=== PATIENT | male | born 1950 | race Caucasian/White ===

== ENCOUNTER 2021-08-07 17:45 | Inpatient (IN) | payer BC ==
[~2021-08-07] VITALS: Ht 182.9 cm; Wt 99.8 kg
--- NOTE | ~2021-08-07 | EKG ---
[place] [address] ELECTROCARDIOGRAM REPORT Name: YOUNG TEJADA Room: [address] ADM IN M.R.#: [id number] Admission: 08/07/21 Attend Phys: Cheryl Wylie, Discharge: Date of : 54 Date of Service: 08/11/21 0353 Report #: [id number] THIS REPORT FOR: //name// [facility] Test Date: 2021-08-11 Test Time: 03:53:02 Pat Name: YOUNG TEJADA Department: Room: [address] Gender: M Voice Teacher: CJ : 1950 Requested By: Cheryl Wylie Order Number: [id number] [place] MD: Measurements Intervals [place] Rate: 117 P: [place]: QRS: -91 QRSD: 142 T: 5 QT: 381 QTc: 532 Interpretive Statements Atrial fibrillation Right bundle branch block Inferior infarct, old Compared to ECG 08/07/2021 17:51:44 Myocardial infarct finding now present Sinus rhythm no longer present Left anterior fascicular block no longer present Electronically Signed On 08-11-2021 9:32:47 PIPE FITTER SUPERVISOR MAINTENANCE by Dequan Hassan [email or web address] By: 2 2 Epiphany Epiphany, /ALONDRA
--- NOTE | ~2021-08-07 | EKG ---
[place] [address] ELECTROCARDIOGRAM REPORT Name: YOUNG TEJADA Room: [address] ADM IN M.R.#: [id number] Admission: 08/07/21 Attend Phys: Cheryl Wylie, Discharge: Date of : 54 Date of Service: 08/11/21 1416 Report #: [id number] THIS REPORT FOR: //name// [facility] Test Date: 2021-08-11 Test Time: 14:16:50 Pat Name: YOUNG TEJADA Department: Room: [address] Gender: M Abrasives Sales Representative: CRIS : 1950 Requested By: Cheryl Wylie Order Number: [id number] [place] MD: Measurements Intervals [place] Rate: 85 P: [place]: QRS: -67 QRSD: 145 T: 13 QT: 410 QTc: 488 Interpretive Statements Atrial fibrillation Right bundle branch block Inferior infarct, old Artifact in lead(s) I,III,aVR,aVL,aVF Compared to ECG 08/11/2021 03:53:02 No significant changes Electronically Signed On 08-12-2021 10:36:54 DIAGRAMMER by Dequan Hassan [email or web address] By: 141 15 Epiphany EpiphanyMD /ALONDRA
[2021-08-07 17:54] VITALS: BP 186/95
[2021-08-07 18:13] LABS: MPV 7.3 fl. (7.2-11.1); NUCLEATED RBCS 0 /100WBC; PLATELET COUNT* 197 thou/uL (150-400); RDW-CV 14.5 % (10.5-14.5)
[2021-08-07 18:15] LABS: HEMATOCRIT 38.9 % (42.0-52.0); HEMOGLOBIN 13.6 gm/dL (14.0-18.0); MCH 33.4 pg (26.0-34.0); MCHC 34.9 g/dL (28.0-37.0); MCV 95.7 fL (80.0-100.0); RBC 4.07 mil/uL (4.50-6.00); WBC 2.8 thou/uL (4.0-11.0)
[2021-08-07 18:43] LABS: INFLUENZA A ANTIGEN Negative (Negative); INFLUENZA B ANTIGEN Negative (Negative)
[2021-08-07 18:49] LABS: CALCIUM 8.6 mg/dL (8.5-10.1); CREATININE 1.3 mg/dL (0.6-1.3); POTASSIUM 3.2 mmol/L (3.5-5.1)
[2021-08-07 18:53] LABS: TOTAL BILIRUBIN 1.7 mg/dL (<0.1-1.0); TOTAL PROTEIN 7.4 g/dL (6.4-8.2)
[2021-08-07 19:08] LABS: ABSOLUTE LYMPHOCYTES 0.3 thou/uL (0.8-5.3); ABSOLUTE NEUTROPHILS 2.5 thou/uL (1.6-8.1); PLATELET ESTIMATE ADEQUATE
[2021-08-07 19:09] LABS: LARGE PLATELETS RARE
[2021-08-07] MEDS ORDERED: CHLORTHALIDONE25 MG PO (20:04)
[2021-08-07] MEDS ORDERED: ATENOLOL 25 MG25 M1 PO (20:04)
[2021-08-07] MEDS ORDERED: AMARYL2 M1 PO (20:04)
[2021-08-08 01:18] LABS: URINE BILIRUBIN NEGATIVE (Negative); URINE BLOOD 1+ (Negative); URINE CLARITY CLEAR; URINE COLOR YELLOW; URINE GLUCOSE-RANDOM 3+ (Negative); URINE KETONES 2+ (Negative); URINE LEUKOCYTES NEGATIVE (Negative); URINE NITRITE NEGATIVE (Negative); URINE PROTEIN 3+ (Negative); URINE SPECIFIC GRAVITY 1.025 (1.005-1.030)
[2021-08-08 02:09] LABS: SQUAMOUS 0-3 Few /LPF (0-3)
[2021-08-08 02:10] LABS: BACTERIA None Seen /HPF (None Seen); CRYSTALS None Seen /LPF (None Seen); HYALINE CASTS 0-3 Few /LPF (None Seen); URINE RBC 0-2 Rare /HPF (0-2); URINE WBC 0-5 Rare /HPF (0-5)
[2021-08-08 03:15] LABS: HEMATOCRIT 37.4 % (42.0-52.0); HEMOGLOBIN 12.8 gm/dL (14.0-18.0); MCH 33.4 pg (26.0-34.0); MCHC 34.2 g/dL (28.0-37.0); MCV 97.5 fL (80.0-100.0); MPV 7.1 fl. (7.2-11.1); RBC 3.83 mil/uL (4.50-6.00); WBC 2.8 thou/uL (4.0-11.0)
[2021-08-08 03:35] VITALS: BP 186/89
[2021-08-08 03:35] LABS: CALCIUM 8.8 mg/dL (8.5-10.1); CREATININE 1.1 mg/dL (0.6-1.3); POTASSIUM 3.2 mmol/L (3.5-5.1)
[2021-08-08 03:39] LABS: ALBUMIN 2.6 g/dL (3.4-5.0); MAGNESIUM 2.2 mg/dL (1.8-2.4); TOTAL BILIRUBIN 1.2 mg/dL (<0.1-1.0); TOTAL PROTEIN 7.8 g/dL (6.4-8.2)
[2021-08-08 07:00] VITALS: BP 154/82
[2021-08-08 11:00] VITALS: BP 138/83
--- NOTE | 2021-08-08 13:49 | EKG ---
[place] [address] ELECTROCARDIOGRAM REPORT Name: YOUNG TEJADA Room: [place] [address] ADM IN ..#: [id number] Admission: 08/07/21 Attend Phys: Cheryl Wylie, Discharge: Date of : 54 Date of Service: 08/07/21 1751 Report #: [id number] THIS REPORT FOR: //name// [facility] ED Test Date: 2021-08-07 Test Time: 17:51:44 Pat Name: YOUNG TEJADA Department: Room: [facility] Gender: M Foundry Metallurgist: SANDRA : 1950 Requested By: Loc Arevalo Order Number: [id number] MD: Jalen Quinn Measurements Intervals [place] Rate: 92 P: 4 HI: 176 QRS: -81 QRSD: 152 T: 48 QT: 395 QTc: 489 Interpretive Statements Sinus rhythm RBBB and LAFB Baseline wander in lead(s) V1,V2 No previous ECG available for comparison Electronically Signed On 08-08-2021 13:49:13 NITRILES LAB TECHNICIAN by Jalen Quinn [email or web address] <ELECTRONICALLY SIGNED> By: Jalen Quinn MD, FACC 08/08/21 1349 1751 1751 Jalen Quinn MD, [facility] /EPI
--- NOTE | 2021-08-08 15:11 | 2DMMODE ---
[place] [address] 2 D/M-MODE ECHOCARDIOGRAM Name: LINDSEYYOUNG OWEN Room: [place] [address] ADM IN .R.#: [id number] Admission: 08/07/21 Attend Phys: Cheryl Wylie, Discharge: Date of : 54 Date of Service: 08/08/21 1511 Report #: [id number] THIS REPORT FOR: cc: Elina Leal Stefany RNP Holkins, John M. MD [facility] ~ APPROVED REPORT Study performed: 08/08/2021 13:48:14 EXAM: Comprehensive 2D, Doppler, and color-flow Echocardiogram Patient Location: In-Patient Room #: er Status: routine BSA: 2.13 HR: 76 bpm BP: 154/82 mmHg Rhythm: NSR Other Information Study Quality: Good Indications Cardiomegaly 2D Dimensions IVSd: 10.88 (7-11mm) LVOT Diam: 20.14 (18-24mm) LVDd: 51.93 mm PWd: 11.63 (7-11mm) Ascending Ao: 30.79 (22-36mm) LVDs: 37.73 (25-40mm) Aortic Root: 32.68 mm Volumes Left Atrial Volume (Systole) LA ESV Index: 37.20 mL/m2 Aortic Valve AoV Peak Alexander.: 1.61 m/s AO Peak Gr.: 10.41 mmHg LVOT Max P.51 mmHg AO Mean Gr.: 5.64 mmHg LVOT Mean P.91 mmHg LVOT Max V: 1.17 m/s AO V2 VTI: 27.38 cm LVOT Mean V: 0.79 m/s MARIBELL (VTI): 2.57 cm2 LVOT V1 VTI: 22.12 [place] [address] 2 D/M-MODE ECHOCARDIOGRAM Name: YOUNG TEJADA Room: [address] IN ..#: [id number] Admission: 08/07/21 Attend Phys: Cheryl Wylie, Discharge: Date of : 54 Date of Service: 08/08/21 1511 Report #: [id number] Mitral Valve E/A Ratio: 1.56 MV Decel. Time: 149.18 ms MV E Max Alexander.: 0.94 m/s MV PHT: 43.26 ms MVA (PHT): 5.09 cm2 TDI E/Lateral E': 8.55 E/Medial E': 8.55 Medial E' Alexander.: 0.11 m/s Lateral E' Alexander.: 0.11 m/s Pulmonary Valve PV Peak Alexander.: 1.03 m/s PV Peak Gr.: 4.27 mmHg Tricuspid Valve RAP Estimate: 5.00 mmHg TR Peak Gr.: 24.22 mmHg RVSP: 29.00 mmHg PA Pressure: 29.00 mmHg Left Ventricle The left ventricle is normal size. There is normal LV segmental wall motion. There is normal left ventricular wall thickness. Left ventricular systolic function is normal. The left ventricular ejection fraction is within the normal range. LVEF is 55-60%. The left ventricular diastolic function is normal. Right Ventricle The right ventricle is normal size. The right ventricular systolic function is normal. Atria The left atrium size is normal. The right atrium size is normal. Aortic Valve Mild aortic valve sclerosis. No aortic regurgitation is present. There is no aortic valvular stenosis. Mitral Valve The mitral valve is normal in structure. There is no mitral valve regurgitation noted. No evidence of mitral valve stenosis. Tricuspid Valve The tricuspid valve is normal in structure. Trace tricuspid regurgitation. [place] [address] 2 D/M-MODE ECHOCARDIOGRAM Name: YOUNG TEJADA Room: [address] IN [facility]#: [id number] Admission: 08/07/21 Attend Phys: Cheryl Wylie, Discharge: Date of : 54 Date of Service: 08/08/21 1511 Report #: [id number] Pulmonic Valve The pulmonary valve is normal in structure. There is no pulmonic valvular regurgitation. Great Vessels The aortic root is normal in size. IVC is normal in size and collapses >50% with inspiration. Pericardium There is no pericardial effusion. <Conclusion> The left ventricle is normal size. There is normal left ventricular wall thickness. Left ventricular systolic function is normal. The left ventricular ejection fraction is within the normal range. LVEF is 55-60%. The left ventricular diastolic function is normal. The right ventricle is normal size. The left atrium size is normal. Mild aortic valve sclerosis. No aortic regurgitation is present. There is no aortic valvular stenosis. The mitral valve is normal in structure. The tricuspid valve is normal in structure. IVC is normal in size and collapses >50% with inspiration. There is no pericardial effusion. There is normal LV segmental wall motion. <ELECTRONICALLY SIGNED> By: Jalen Quinn MD, FACC 08/08/211510 10 10 Jalen Quinn MD, FACC /INF
[2021-08-08 15:29] VITALS: BP 121/76
[2021-08-08 16:21] VITALS: BP 121/76
[2021-08-08 21:04] VITALS: BP 159/80
[2021-08-09 02:39] VITALS: BP 172/91
[2021-08-09 04:12] LABS: HEMATOCRIT 35.8 % (42.0-52.0); HEMOGLOBIN 12.5 gm/dL (14.0-18.0); MCH 33.2 pg (26.0-34.0); MCHC 34.9 g/dL (28.0-37.0); MCV 95.1 fL (80.0-100.0); MPV 7.7 fl. (7.2-11.1); RBC 3.76 mil/uL (4.50-6.00); RDW-CV 14.9 % (10.5-14.5)
[2021-08-09 04:41] LABS: ALBUMIN 2.2 g/dL (3.4-5.0); CALCIUM 8.7 mg/dL (8.5-10.1); CREATININE 0.9 mg/dL (0.6-1.3); MAGNESIUM 2.1 mg/dL (1.8-2.4); POTASSIUM 3.2 mmol/L (3.5-5.1); TOTAL BILIRUBIN 0.9 mg/dL (<0.1-1.0); TOTAL PROTEIN 7.2 g/dL (6.4-8.2)
[2021-08-09 05:57] VITALS: BP 157/85
[2021-08-09 07:08] LABS: GLYCOHEMOGLOBIN (HGB A1C) 8.8 % (4.8-5.6)
[2021-08-09 15:00] VITALS: BP 167/75
[2021-08-09 15:02] VITALS: BP 167/75
[2021-08-09 15:41] LABS: CALCIUM 8.6 mg/dL (8.5-10.1); POTASSIUM 3.7 mmol/L (3.5-5.1)
[2021-08-09 16:00] VITALS: BP 130/86
[2021-08-09 20:00] VITALS: BP 111/63
[2021-08-10 01:30] VITALS: BP 128/83
[2021-08-10 05:36] LABS: ALBUMIN 1.9 g/dL (3.4-5.0); CALCIUM 8.6 mg/dL (8.5-10.1); CREATININE 0.9 mg/dL (0.6-1.3); POTASSIUM 3.8 mmol/L (3.5-5.1); TOTAL BILIRUBIN 0.8 mg/dL (<0.1-1.0); TOTAL PROTEIN 6.9 g/dL (6.4-8.2)
[2021-08-10 05:49] VITALS: BP 131/83
[2021-08-10 08:00] VITALS: BP 143/83
[2021-08-10 16:00] VITALS: BP 133/78
[2021-08-10 20:29] LABS: ABSOLUTE LYMPHOCYTES 0.2 thou/uL (0.8-5.3); ABSOLUTE NEUTROPHILS 3.7 thou/uL (1.6-8.1); BASOPHILS 0.8 %; HEMATOCRIT 41.8 % (42.0-52.0); HEMOGLOBIN 14.4 gm/dL (14.0-18.0); LYMPHOCYTES 5.4 %; MCH 33.2 pg (26.0-34.0); MCHC 34.4 g/dL (28.0-37.0); MCV 96.7 fL (80.0-100.0); MONOCYTES 1.1 %; MPV 7.8 fl. (7.2-11.1); NUCLEATED RBCS 0 /100WBC; PLATELET COUNT* 229 thou/uL (150-400); POLYS 92.7 %; RBC 4.32 mil/uL (4.50-6.00); RDW-CV 14.9 % (10.5-14.5); WBC 3.9 thou/uL (4.0-11.0)
[2021-08-10 20:40] VITALS: BP 137/81
[2021-08-10 20:44] LABS: ALBUMIN 1.9 g/dL (3.4-5.0); CALCIUM 8.8 mg/dL (8.5-10.1); CREATININE 1.1 mg/dL (0.6-1.3); POTASSIUM 3.8 mmol/L (3.5-5.1); TOTAL BILIRUBIN 0.6 mg/dL (<0.1-1.0); TOTAL PROTEIN 7.3 g/dL (6.4-8.2)
[2021-08-10 23:30] VITALS: BP 142/78
[2021-08-11 04:22] VITALS: BP 168/89
[2021-08-11 05:56] LABS: HEMATOCRIT 44.7 % (42.0-52.0); HEMOGLOBIN 15.3 gm/dL (14.0-18.0); MCH 33.3 pg (26.0-34.0); MCHC 34.3 g/dL (28.0-37.0); MPV 8.9 fl. (7.2-11.1); NUCLEATED RBCS 0 /100WBC; PLATELET COUNT* 239 thou/uL (150-400); RBC 4.61 mil/uL (4.50-6.00); RDW-CV 15.3 % (10.5-14.5); WBC 4.1 thou/uL (4.0-11.0)
[2021-08-11 06:03] LABS: ALBUMIN 2.1 g/dL (3.4-5.0); CALCIUM 8.9 mg/dL (8.5-10.1); MAGNESIUM 1.9 mg/dL (1.8-2.4); TOTAL PROTEIN 7.9 g/dL (6.4-8.2)
[2021-08-11 06:15] LABS: POTASSIUM 4.8 mmol/L (3.5-5.1)
[2021-08-11 07:13] LABS: ABSOLUTE LYMPHOCYTES 0.3 thou/uL (0.8-5.3); ABSOLUTE NEUTROPHILS 3.8 thou/uL (1.6-8.1)
[2021-08-11 07:14] LABS: PLATELET ESTIMATE ADEQUATE
[2021-08-11 08:00] VITALS: BP 150/105
--- NOTE | 2021-08-11 09:32 | EKG ---
[place] [address] ELECTROCARDIOGRAM REPORT Name: YOUNG TEJADA Room: [address] ADM IN M.R.#: [id number] Admission: 08/07/21 Attend Phys: Cheryl Wylie, Discharge: Date of : 54 Date of Service: 08/11/21 0353 Report #: [id number] THIS REPORT FOR: //name// [facility] Test Date: 2021-08-11 Test Time: 03:53:02 Pat Name: YOUNG TEJADA Department: Room: [facility] Gender: M Box Truck Washer: CJ : 1950 Requested By: Erma Boyle Order Number: [id number] [place] MD: Dequan Hassan Measurements Intervals [place] Rate: 117 P: [place]: QRS: -91 QRSD: 142 T: 5 QT: 381 QTc: 532 Interpretive Statements Atrial fibrillation Right bundle branch block Inferior infarct, old Compared to ECG 08/07/2021 17:51:44 Myocardial infarct finding now present Sinus rhythm no longer present Left anterior fascicular block no longer present Electronically Signed On 08-11-2021 9:32:47 FIELD ARTILLERY CREWMEMBER by Dequan Hassan [email or web address] <ELECTRONICALLY SIGNED> By: Aparna Hassan MD, FACC 08/11/21 0932 2 2 Aparna Hassan MD, FAC /EPI
[2021-08-11 12:00] VITALS: BP 140/76
[2021-08-11 12:21] LABS: BE 1.7 mmol/L (-2 to +3); PCO2 36.2 mmHg (35.0-45.0); pH 7.461 (7.340-7.450)
[2021-08-11 12:26] LABS: PO2 56.6 mmHg (75.0-100.0)
[2021-08-11 16:00] VITALS: BP 137/80
[2021-08-11 20:00] VITALS: BP 131/85
[2021-08-12] VITALS: BP 129/82
[2021-08-12 04:00] VITALS: BP 123/74
[2021-08-12 08:00] VITALS: BP 144/51
--- NOTE | 2021-08-12 08:15 | CON ---
[address] [address] CONSULTATION Name: YOUNG TEJADA Room: [address] IN M.R.#: [id number] Admission: 08/07/21 Attend Phys: Cheryl Wylie MD Discharge: Date of : 54 Report #: [id number] THIS REPORT FOR: cc: Elina Leal Stefany RNP Biggs, F. Douglas MD [facility] ~ DATE OF CONSULTATION: 08/11/2021 CARDIOLOGY FOLLOWUP VISIT HISTORY OF PRESENT ILLNESS: The patient feels better today, he says. He is less short of breath. He remains in atrial fibrillation, but now his heart rate is controlled. He is on an amiodarone drip. He is on Cardizem and a beta bryan. He got a loading dose of digoxin yesterday. PHYSICAL EXAMINATION: GENERAL: He presents as a well-developed, well-nourished white male in no acute distress. VITAL SIGNS: Pulse was 79 and irregular, blood pressure was 168/89, respirations were 22, temperature was 36.6. NECK: There was no jugular venous distention or hepatojugular reflux. LUNGS: Revealed decreased breath sounds bilaterally. HEART: Revealed somewhat distant heart tones, but there were no murmurs, rubs, thrills, heaves or gallops. Rhythm was irregularly irregular. ABDOMEN: Soft, flat, nontender. There were no palpable masses. There is no organomegaly. EXTREMITIES: Reveal no cyanosis, clubbing or edema. DIAGNOSTIC DATA: His monitor does reveal atrial fibrillation with a controlled ventricular response. IMPRESSION: 1. Atrial fibrillation, now with a controlled ventricular response. 2. COVID-19 infection. 3. Essential hypertension. 4. Diabetes mellitus. RECOMMENDATIONS: I began p.o. amiodarone to get him off the IV amiodarone. Please see my orders. Overall, he seems to be doing better. <ELECTRONICALLY SIGNED> By: Aparna Hassan MD, FACC 08/12/21 0815 0830F. Dequan Hassan MD, FACC /nt
[2021-08-12 09:21] LABS: HEMATOCRIT 41.2 % (42.0-52.0); MCH 32.9 pg (26.0-34.0); MCHC 33.9 g/dL (28.0-37.0); MCV 97.1 fL (80.0-100.0); MPV 8.4 fl. (7.2-11.1); RBC 4.24 mil/uL (4.50-6.00); RDW-CV 15.8 % (10.5-14.5); WBC 3.2 thou/uL (4.0-11.0)
[2021-08-12 09:42] LABS: ALBUMIN 2.3 g/dL (3.4-5.0); ALKALINE PHOSPHATASE 49 U/L (46-116); ANION GAP 8 mmol/L (7-16); BUN 48 mg/dL (7-18); CALCIUM 8.9 mg/dL (8.5-10.1); CHLORIDE 97 mmol/L (98-107); CHOLESTEROL 129 mg/dL (<200); CO2 29 mmol/L (21-32); GLUCOSE 218 mg/dL (70-99); HDL CHOLESTEROL 17 mg/dL (>40); LDL CHOLESTEROL 88 mg/dL (<100); POTASSIUM 3.6 mmol/L (3.5-5.1); SGOT 18 U/L (15-37); SGPT 17 U/L (30-65); SODIUM 134 mmol/L (136-145); TC:HDL 7.6 Ratio (Not establshd); TOTAL PROTEIN 7.2 g/dL (6.4-8.2); TRIGLYCERIDE 123 mg/dL (<150); VLDL 25 mg/dL (<40)
[2021-08-12 09:43] LABS: SERUM ASSESSMENT Clear
[2021-08-12 09:44] LABS: CALCIUM 8.9 mg/dL (8.5-10.1); MAGNESIUM 2.1 mg/dL (1.8-2.4); POTASSIUM 3.7 mmol/L (3.5-5.1)
--- NOTE | 2021-08-12 10:37 | EKG ---
[place] [address] ELECTROCARDIOGRAM REPORT Name: MALLORYYOUNG Room: [address] ADM IN M.R.#: [id number] Admission: 08/07/21 Attend Phys: Cheryl Wylie, Discharge: Date of : 54 Date of Service: 08/11/21 1416 Report #: [id number] THIS REPORT FOR: //name// [facility] Test Date: 2021-08-11 Test Time: 14:16:50 Pat Name: YOUNG TEJADA Department: Room: [address] Gender: M Crop Nutrition Scientist: CRIS : 1950 Requested By: Aparna Hassan Order Number: [id number] [place] MD: Dequan Hassan Measurements Intervals [place] Rate: 85 P: [place]: QRS: -67 QRSD: 145 T: 13 QT: 410 QTc: 488 Interpretive Statements Atrial fibrillation Right bundle branch block Inferior infarct, old Artifact in lead(s) I,III,aVR,aVL,aVF Compared to ECG 08/11/2021 03:53:02 No significant changes Electronically Signed On 08-12-2021 10:36:54 CONTEMPORARY OR MODERN DANCER by Dequan Hassan [email or web address] <ELECTRONICALLY SIGNED> By: Aparna Hassan MD, FACC 08/12/21 1036 15 141 Aparna Hassan MD, FACC /EPI
[2021-08-12 12:00] VITALS: BP 136/72
[2021-08-12 16:00] VITALS: BP 158/74
[2021-08-12 20:00] VITALS: BP 114/74
[2021-08-13 00:05] VITALS: BP 139/85
[2021-08-13 04:00] VITALS: BP 136/82
[2021-08-13 08:00] VITALS: BP 133/76
[2021-08-13 08:59] LABS: ABSOLUTE NEUTROPHILS 2.6 thou/uL (1.6-8.1); WBC 2.8 thou/uL (4.0-11.0)
[2021-08-13 09:01] LABS: ABSOLUTE LYMPHOCYTES 0.2 thou/uL (0.8-5.3); BASOPHILS 0.7 %; HEMATOCRIT 40.5 % (42.0-52.0); HEMOGLOBIN 13.6 gm/dL (14.0-18.0); MCH 32.5 pg (26.0-34.0); MCHC 33.6 g/dL (28.0-37.0); MCV 96.8 fL (80.0-100.0); MONOCYTES 0.9 %; MPV 8.8 fl. (7.2-11.1); NUCLEATED RBCS 0 /100WBC; PLATELET COUNT* 270 thou/uL (150-400); POLYS 92.4 %; RBC 4.18 mil/uL (4.50-6.00); RDW-CV 15.7 % (10.5-14.5)
[2021-08-13 09:03] LABS: BE 3.8 mmol/L (-2 to +3); PCO2 36.6 mmHg (35.0-45.0); pH 7.486 (7.340-7.450)
[2021-08-13 09:10] LABS: PO2 51.7 mmHg (75.0-100.0)
[2021-08-13 09:25] LABS: ALBUMIN 2.2 g/dL (3.4-5.0); CALCIUM 8.3 mg/dL (8.5-10.1); CREATININE 1.3 mg/dL (0.6-1.3); MAGNESIUM 2.1 mg/dL (1.8-2.4); POTASSIUM 3.8 mmol/L (3.5-5.1); TOTAL PROTEIN 6.9 g/dL (6.4-8.2)
[2021-08-13 12:00] VITALS: BP 140/79
[2021-08-13 12:43] LABS: BE 2.2 mmol/L (-2 to +3); pH 7.504 (7.340-7.450)
[2021-08-13 12:45] LABS: PO2 47.3 mmHg (75.0-100.0)
[2021-08-13 16:00] VITALS: BP 141/78
[2021-08-13 19:55] VITALS: BP 134/74
[2021-08-14] VITALS (15 sets, daily range): BP systolic 114–175; BP diastolic 58–85
[2021-08-14 07:09] LABS: ABSOLUTE LYMPHOCYTES 0.1 thou/uL (0.8-5.3); ABSOLUTE NEUTROPHILS 3.3 thou/uL (1.6-8.1); BASOPHILS 0.2 %; HEMATOCRIT 38.8 % (42.0-52.0); HEMOGLOBIN 13.1 gm/dL (14.0-18.0); LYMPHOCYTES 3.9 %; MCH 32.8 pg (26.0-34.0); MCHC 33.8 g/dL (28.0-37.0); MONOCYTES 0.4 %; MPV 8.4 fl. (7.2-11.1); NUCLEATED RBCS 0 /100WBC; PLATELET COUNT* 238 thou/uL (150-400); POLYS 95.5 %; RDW-CV 15.4 % (10.5-14.5); WBC 3.4 thou/uL (4.0-11.0)
[2021-08-14 07:21] LABS: ALBUMIN 2.1 g/dL (3.4-5.0); CALCIUM 8.2 mg/dL (8.5-10.1); CREATININE 1.1 mg/dL (0.6-1.3); POTASSIUM 3.6 mmol/L (3.5-5.1); TOTAL BILIRUBIN 1.3 mg/dL (<0.1-1.0); TOTAL PROTEIN 6.5 g/dL (6.4-8.2)
--- NOTE | 2021-08-14 07:59 | CON ---
[address] [address] CONSULTATION Name: YOUNG TEJADA Room: [address] ADM IN M.R.#: [id number] Admission: 08/07/21 Attend Phys: Cheryl Wylie MD Discharge: Date of : 54 Report #: [id number] THIS REPORT FOR: cc: Elina Leal Stefany RNP Biggs, F. Douglas MD [facility] ~ DATE OF CONSULTATION: 08/12/2021 CARDIOLOGY HOSPITAL FOLLOWUP VISIT HISTORY OF PRESENT ILLNESS: The patient feels well today. He says he feels better than he felt yesterday. He is not complaining of any shortness of breath or chest pain. He remains in atrial fibrillation, his heart rate is controlled with multiple meds. On the monitor, he periodically has a sinus beat. Today, he looks well, feels well, and seems to be doing well. There is no jugular venous distention. PHYSICAL EXAMINATION: VITAL SIGNS: His temperature is 36.7, pulse was 81 and irregular, respirations were 22 and regular. His blood pressure was 121/74. His O2 sat was 89% on oxygen. LUNGS: Demonstrated decreased breath sounds bilaterally. HEART: Revealed normal first and second heart sound. The rhythm was irregularly irregular. No murmurs, rubs, thrills, heaves or gallops. PMI is nondisplaced. ABDOMEN: Soft, flat, nontender, no palpable masses, no organomegaly. EXTREMITIES: Reveal no cyanosis, clubbing or edema. NEUROLOGIC: The patient mentated normally, talked normally, moved all extremities normally. IMPRESSION: 1. COVID-19 pneumonia. 2. Atrial fibrillation with a controlled ventricular response, now. 3. Essential hypertension. 4. Diabetes mellitus. RECOMMENDATIONS: I would continue his current regimen and continue loading with amiodarone. <ELECTRONICALLY SIGNED> By: Aparna Hassan MD, FACC 08/14/21 0759 0808 0843F. Dequan Hassan MD, FACC /nt
[2021-08-14 10:24] LABS: BE -0.5 mmol/L (-2 to +3); PCO2 28.6 mmHg (35.0-45.0); PO2 73.5 mmHg (75.0-100.0); pH 7.494 (7.340-7.450)
--- NOTE | 2021-08-14 12:56 | EKG ---
[place] [address] ELECTROCARDIOGRAM REPORT Name: YOUNG TEJADA Room: [address] ADM IN M.R.#: [id number] Admission: 08/07/21 Attend Phys: Cheryl Wylie, Discharge: Date of : 54 Date of Service: 08/14/21 1010 Report #: [id number] THIS REPORT FOR: //name// [facility] Test Date: 2021-08-14 Test Time: 10:10:28 Pat Name: YOUNG TEJADA Department: Room: [facility] Gender: M Scientific Programmer Analyst: : 1950 Requested By: Aparan Hassan Order Number: [id number] [place] MD: Cayden Bains Measurements Intervals [place] Rate: 91 P: [place]: QRS: -73 QRSD: 146 T: 55 QT: 471 QTc: 580 Interpretive Statements Atrial flutter RBBB and LAFB Compared to ECG 08/11/2021 14:16:50 Left anterior fascicular block now present Myocardial infarct finding no longer present Electronically Signed On 08-14-2021 12:56:20 TEXTILE MACHINE OPERATOR by Cayden Bains [email or web address] <ELECTRONICALLY SIGNED> By: Cayden Bains MD, FACC 08/14/21 1256 1010 1010 Cayden Bains MD, FAC /EPI
[2021-08-15 05:35] LABS: HEMATOCRIT 41.6 % (42.0-52.0); HEMOGLOBIN 14.1 gm/dL (14.0-18.0); MCHC 33.8 g/dL (28.0-37.0); MCV 97.6 fL (80.0-100.0); MPV 8.1 fl. (7.2-11.1); RBC 4.26 mil/uL (4.50-6.00); RDW-CV 15.7 % (10.5-14.5); WBC 4.7 thou/uL (4.0-11.0)
[2021-08-15 06:03] LABS: CALCIUM 8.3 mg/dL (8.5-10.1); CREATININE 1.2 mg/dL (0.6-1.3); POTASSIUM 3.9 mmol/L (3.5-5.1)
[2021-08-15 19:01] VITALS: BP 157/74
[2021-08-15 20:00] VITALS: BP 158/77
[2021-08-15 21:01] VITALS: BP 148/68
[2021-08-15 22:01] VITALS: BP 138/78
[2021-08-15 23:00] VITALS: BP 149/83
[2021-08-16] VITALS (24 sets, daily range): BP systolic 126–158; BP diastolic 53–81
[2021-08-16 04:48] LABS: BE -0.3 mmol/L (-2 to +3); PCO2 32.6 mmHg (35.0-45.0); PO2 60.4 mmHg (75.0-100.0)
[2021-08-16 05:54] LABS: HEMATOCRIT 39.6 % (42.0-52.0); HEMOGLOBIN 13.5 gm/dL (14.0-18.0); MCH 32.8 pg (26.0-34.0); MCHC 34.1 g/dL (28.0-37.0); MCV 96.2 fL (80.0-100.0); MPV 8.6 fl. (7.2-11.1); NUCLEATED RBCS 0 /100WBC; PLATELET COUNT* 166 thou/uL (150-400); RBC 4.12 mil/uL (4.50-6.00); RDW-CV 15.4 % (10.5-14.5); WBC 5.4 thou/uL (4.0-11.0)
[2021-08-16 06:37] LABS: ALBUMIN 2.2 g/dL (3.4-5.0); CALCIUM 8.2 mg/dL (8.5-10.1); CREATININE 1.1 mg/dL (0.6-1.3); TOTAL BILIRUBIN 1.1 mg/dL (<0.1-1.0); TOTAL PROTEIN 6.4 g/dL (6.4-8.2)
[2021-08-16 08:36] LABS: ABSOLUTE LYMPHOCYTES 0.2 thou/uL (0.8-5.3); ABSOLUTE MONOCYTES 0.1 thou/uL (0.0-1.2); ABSOLUTE NEUTROPHILS 5.2 thou/uL (1.6-8.1)
[2021-08-16 08:38] LABS: PLATELET ESTIMATE ADEQUATE
--- NOTE | 2021-08-16 12:27 | EKG ---
[place] [address] ELECTROCARDIOGRAM REPORT Name: YOUNG TEJADA Room: [address] ADM IN M.R.#: [id number] Admission: 08/07/21 Attend Phys: Cheryl Wylie, Discharge: Date of : 54 Date of Service: 08/16/21 0510 Report #: [id number] THIS REPORT FOR: //name// [facility] Test Date: 2021-08-16 Test Time: 05:10:09 Pat Name: YOUNG TEJADA Department: Room: [address] Gender: M Consultant Teacher: : 1950 Requested By: Erma Boyle Order Number: [id number] Adonay MD: Cayden Bains Measurements Intervals [place] Rate: 52 P: -16 [place]: 206 QRS: -66 QRSD: 151 T: 64 QT: 554 QTc: 516 Interpretive Statements Sinus rhythm RBBB and LAFB Compared to ECG 08/14/2021 10:10:28 Atrial flutter no longer present Electronically Signed On 08-16-2021 12:27:11 CAE ENGINEER by Cayden Banis [email or web address] <ELECTRONICALLY SIGNED> By: Cayden Bains MD, FACC 08/16/21 1227 0510 0510 Cayden Bains MD, FAC /EPI
[2021-08-16 14:35] LABS: BE -3.7 mmol/L (-2 to +3); pH 7.419 (7.340-7.450)
[2021-08-16 14:38] LABS: PO2 51.1 mmHg (75.0-100.0)
[2021-08-16 17:33] LABS: BE -0.5 mmol/L (-2 to +3); PCO2 30.3 mmHg (35.0-45.0); PO2 64.4 mmHg (75.0-100.0); pH 7.478 (7.340-7.450)
[2021-08-17] VITALS (23 sets, daily range): BP systolic 121–170; BP diastolic 52–110
[2021-08-17 05:11] LABS: HEMOGLOBIN 13.6 gm/dL (14.0-18.0); MCH 32.5 pg (26.0-34.0); MCV 95.7 fL (80.0-100.0); MPV 8.9 fl. (7.2-11.1); RBC 4.18 mil/uL (4.50-6.00); RDW-CV 15.4 % (10.5-14.5); WBC 7.6 thou/uL (4.0-11.0)
[2021-08-17 05:25] LABS: CALCIUM 8.1 mg/dL (8.5-10.1); CREATININE 1.1 mg/dL (0.6-1.3); POTASSIUM 4.4 mmol/L (3.5-5.1)
[2021-08-18] VITALS (11 sets, daily range): BP systolic 121–158; BP diastolic 61–82
[2021-08-18 13:31] LABS: HEMATOCRIT 41.7 % (42.0-52.0); MCH 32.6 pg (26.0-34.0); MCHC 33.6 g/dL (28.0-37.0); MPV 9.2 fl. (7.2-11.1); RBC 4.29 mil/uL (4.50-6.00); RDW-CV 15.8 % (10.5-14.5); WBC 8.1 thou/uL (4.0-11.0)
[2021-08-18 13:41] LABS: CALCIUM 8.2 mg/dL (8.5-10.1); CREATININE 1.3 mg/dL (0.6-1.3); POTASSIUM 4.2 mmol/L (3.5-5.1)
[2021-08-19 00:50] VITALS: BP 144/74
[2021-08-19 04:41] VITALS: BP 132/64
[2021-08-19 12:48] VITALS: BP 148/67
[2021-08-19 16:54] VITALS: BP 149/65
[2021-08-19 20:00] VITALS: BP 129/55
[2021-08-19 20:01] LABS: HEMATOCRIT 44.3 % (42.0-52.0); MCH 32.9 pg (26.0-34.0); MCHC 33.9 g/dL (28.0-37.0); MPV 9.5 fl. (7.2-11.1); NUCLEATED RBCS 0 /100WBC; PLATELET COUNT* 116 thou/uL (150-400); RBC 4.57 mil/uL (4.50-6.00); RDW-CV 15.4 % (10.5-14.5); WBC 6.7 thou/uL (4.0-11.0)
[2021-08-19 20:08] LABS: CALCIUM 8.2 mg/dL (8.5-10.1); CREATININE 1.1 mg/dL (0.6-1.3); POTASSIUM 4.4 mmol/L (3.5-5.1)
[2021-08-19 21:00] LABS: ABSOLUTE LYMPHOCYTES 0.2 thou/uL (0.8-5.3); ABSOLUTE MONOCYTES 0.1 thou/uL (0.0-1.2); ABSOLUTE NEUTROPHILS 6.4 thou/uL (1.6-8.1); PLATELET ESTIMATE DECREASED
[2021-08-19 21:01] LABS: TOXIC GRANULATION Occasional
--- NOTE | 2021-08-19 21:54 | CON ---
[address] [address] CONSULTATION Name: YOUNG TEJADA Room: [address] IN M.R.#: [id number] Admission: 08/07/21 Attend Phys: Cheryl Wylie MD Discharge: Date of : 54 Report #: [id number] THIS REPORT FOR: cc: Elina Leal Stefany RNP Pervez, Adeel MD ~ DATE OF CONSULTATION: 08/10/2021 REQUESTING PHYSICIAN: Dr. Nascimento. INDICATION FOR CONSULTATION: Acute hypoxemic respiratory failure secondary to COVID-19. HISTORY OF PRESENT ILLNESS: A 70-year-old gentleman, past medical history includes a history of diabetes and hypertension. He is a remote smoker. He does not carry a previous diagnosis of COPD. At that time he is admitted here with acute hypoxemic respiratory failure secondary to COVID-19, there has been progressively worsening hypoxemia, initially he was maintaining O2 saturation on 2 liters nasal cannula in the low 90s. At the time of my evaluation with 15 liters of green high-flow nasal cannula in place, the patient was only oxygenating 86%. He is short of breath. He is coughing. There is not much sputum. There is no chest pain, mild swelling of lower extremities, no calf pain. No upper respiratory complaints. He has had difficult to control paroxysmal atrial fibrillation with RVR. REVIEW OF SYSTEMS: Review of systems for 10 points is negative except as mentioned above. PAST MEDICAL HISTORY: Hypertension and diabetes. CURRENT MEDICATIONS: List in [facility] reviewed. HOME MEDICATIONS: List in [facility] reviewed. ALLERGIES: REPORTEDLY ALLERGIC TO PENICILLIN; however, tolerates cephalosporins without any problems. FAMILY HISTORY: No pertinent family history. PHYSICAL EXAMINATION: GENERAL: He is alert, awake and oriented. Vitals in [facility] reviewed. NECK: Does not show raised JVP. CHEST: Breath sounds are bilaterally equal. No added sounds. HEART: Irregular. No murmur. ABDOMEN: [place] [address] CONSULTATION Name: YOUNG TEJADA Room: [address] IN .R.#: [id number] Admission: 08/07/21 Attend Phys: Cheryl Wylie MD Discharge: Date of : 54 Report #: [id number] EXTREMITIES: Lower extremities, trace edema, no calf tenderness. The patient's imaging as well as lab work in [facility] reviewed. I had lab work repeated this evening in addition to chest x-ray and I reviewed these. There is worsening infiltrates bilaterally. ASSESSMENT AND PLAN: 1. Acute hypoxemic respiratory failure secondary to COVID-19. The patient is becoming more hypoxemic. I requested the patient to be switched over to heated high-flow nasal cannula, if O2 saturation is not maintained on a green high-flow nasal cannula. If he fails to improve, then I recommend having a low threshold of adding a BiPAP while asleep. 2. COVID-19. Recommend increasing dexamethasone to 10 mg b.i.d., extend duration of the remdesivir to 10 days. Follow LFTs. I would expect further rise in his glucoses as a result. Further discussion regarding this as below. Recommend Actemra as well; however, it is not available. 3. Pulmonary infiltrates, these have worsened; therefore, I switched his ceftriaxone over to cefepime and remains on doxycycline, adding linezolid later should he fail to improve, could be a consideration. 4. Fluid overload/hypoalbuminemia. His albumin is only 1.9. Therefore, despite elevated BUN, we should be able to diurese and give him albumin; however, at 60 of Lasix with 25 grams of albumin for tomorrow morning with potassium replacement. May consider more Lasix later. 5. Atrial fibrillation with rapid ventricular response, on amiodarone, managed by Cardiology. 6. Smoker/possible bronchospasm. He is on low dose Xopenex q.4 hours. We will switch this over to Brovana and p.r.n. Xopenex. Xopenex could be switched to schedule later if needed. 7. Diabetes/hyperglycemia. He has had fairly high blood glucoses above 400. I would advance another small dose of insulin, Lantus is only 7 units, moderate dose insulin sliding scale. I am increasing dexamethasone as above. I would expect that his glucoses will rise and he will need more insulin. Recommend increasing insulin accordingly. For now, increased the insulin sliding scale to high dose. He will likely also need significant increase in Lantus dose. 8. Deep venous thrombosis prophylaxis, already anticoagulated. 9. Gastrointestinal prophylaxis, Protonix. 10. Clostridium difficile prophylaxis, Lactinex. Thanks for this consultation. <ELECTRONICALLY SIGNED> By: Jose Mazariegos MD 08/19/21 2154 2246 [id number] Mazariegos MD /nt
[2021-08-20] VITALS (8 sets, daily range): BP systolic 109–151; BP diastolic 58–75
[2021-08-20 04:46] LABS: HEMATOCRIT 44.7 % (42.0-52.0); HEMOGLOBIN 15.5 gm/dL (14.0-18.0); MCH 32.9 pg (26.0-34.0); MCHC 34.7 g/dL (28.0-37.0); MCV 94.9 fL (80.0-100.0); MPV 8.3 fl. (7.2-11.1); RBC 4.71 mil/uL (4.50-6.00); RDW-CV 15.2 % (10.5-14.5); WBC 7.1 thou/uL (4.0-11.0)
[2021-08-20 05:09] LABS: CALCIUM 7.9 mg/dL (8.5-10.1); CREATININE 0.9 mg/dL (0.6-1.3); MAGNESIUM 2.1 mg/dL (1.8-2.4); TOTAL BILIRUBIN 1.2 mg/dL (<0.1-1.0)
[2021-08-21] VITALS (7 sets, daily range): BP systolic 108–149; BP diastolic 57–75
[2021-08-21 05:43] LABS: ABSOLUTE LYMPHOCYTES 0.1 thou/uL (0.8-5.3); ABSOLUTE NEUTROPHILS 6.3 thou/uL (1.6-8.1); BASOPHILS 0.3 %; EOSINOPHILS 0.1 %; HEMATOCRIT 38.8 % (42.0-52.0); LYMPHOCYTES 1.2 %; MCH 31.8 pg (26.0-34.0); MCHC 33.5 g/dL (28.0-37.0); MCV 94.8 fL (80.0-100.0); MONOCYTES 0.2 %; MPV 9.7 fl. (7.2-11.1); NUCLEATED RBCS 0 /100WBC; PLATELET COUNT* 107 thou/uL (150-400); POLYS 98.2 %; RBC 4.09 mil/uL (4.50-6.00); RDW-CV 15.2 % (10.5-14.5); WBC 6.4 thou/uL (4.0-11.0)
[2021-08-21 06:32] LABS: ALBUMIN 2.3 g/dL (3.4-5.0); CALCIUM 8.1 mg/dL (8.5-10.1); CREATININE 1.2 mg/dL (0.6-1.3); MAGNESIUM 2.2 mg/dL (1.8-2.4); PHOSPHORUS* 4.1 mg/dL (2.5-4.9); POTASSIUM 4.2 mmol/L (3.5-5.1); TOTAL BILIRUBIN 1.3 mg/dL (<0.1-1.0); TOTAL PROTEIN 6.1 g/dL (6.4-8.2)
[2021-08-21 09:22] LABS: BE -1.8 mmol/L (-2 to +3); PCO2 31.4 mmHg (35.0-45.0); PO2 62.4 mmHg (75.0-100.0); pH 7.447 (7.340-7.450)
[2021-08-22] VITALS (10 sets, daily range): BP systolic 109–151; BP diastolic 45–75
[2021-08-22 15:19] LABS: ABSOLUTE LYMPHOCYTES 0.1 thou/uL (0.8-5.3); ABSOLUTE NEUTROPHILS 6.8 thou/uL (1.6-8.1); BASOPHILS 0.2 %; HEMATOCRIT 39.6 % (42.0-52.0); HEMOGLOBIN 13.5 gm/dL (14.0-18.0); LYMPHOCYTES 1.3 %; MCH 32.6 pg (26.0-34.0); MCHC 34.1 g/dL (28.0-37.0); MCV 95.5 fL (80.0-100.0); MONOCYTES 0.3 %; MPV 10.6 fl. (7.2-11.1); NUCLEATED RBCS 0 /100WBC; PLATELET COUNT* 109 thou/uL (150-400); POLYS 98.2 %; RBC 4.14 mil/uL (4.50-6.00)
[2021-08-22 15:28] LABS: ALBUMIN 2.2 g/dL (3.4-5.0); CALCIUM 8.3 mg/dL (8.5-10.1); MAGNESIUM 2.3 mg/dL (1.8-2.4); POTASSIUM 4.3 mmol/L (3.5-5.1); TOTAL PROTEIN 6.3 g/dL (6.4-8.2)
[2021-08-22 17:35] LABS: BE -0.9 mmol/L (-2 to +3); PCO2 33.7 mmHg (35.0-45.0); pH 7.441 (7.340-7.450)
[2021-08-23] VITALS (24 sets, daily range): BP systolic 94–124; BP diastolic 49–70
[2021-08-23 06:03] LABS: CALCIUM 8.2 mg/dL (8.5-10.1); MAGNESIUM 2.2 mg/dL (1.8-2.4); POTASSIUM 4.5 mmol/L (3.5-5.1); TOTAL BILIRUBIN 1.1 mg/dL (<0.1-1.0); TOTAL PROTEIN 6.1 g/dL (6.4-8.2)
[2021-08-23 10:25] LABS: HEMATOCRIT 38.2 % (42.0-52.0); HEMOGLOBIN 12.9 gm/dL (14.0-18.0); MCH 32.8 pg (26.0-34.0); MCHC 33.9 g/dL (28.0-37.0); MCV 96.6 fL (80.0-100.0); MPV 9.8 fl. (7.2-11.1); RBC 3.95 mil/uL (4.50-6.00); RDW-CV 15.3 % (10.5-14.5)
[2021-08-24] VITALS (21 sets, daily range): BP systolic 102–130; BP diastolic 53–75
[2021-08-24 06:32] LABS: HEMOGLOBIN 13.1 gm/dL (14.0-18.0); MCH 32.2 pg (26.0-34.0); MCHC 33.8 g/dL (28.0-37.0); MCV 95.5 fL (80.0-100.0); MPV 10.2 fl. (7.2-11.1); RBC 4.08 mil/uL (4.50-6.00); RDW-CV 15.8 % (10.5-14.5); WBC 7.4 thou/uL (4.0-11.0)
[2021-08-24 06:41] LABS: CALCIUM 8.1 mg/dL (8.5-10.1); MAGNESIUM 2.4 mg/dL (1.8-2.4); POTASSIUM 4.8 mmol/L (3.5-5.1); TOTAL BILIRUBIN 1.1 mg/dL (<0.1-1.0); TOTAL PROTEIN 6.1 g/dL (6.4-8.2)
[2021-08-25] VITALS (59 sets, daily range): BP systolic 84–251; BP diastolic 54–118
[2021-08-25 06:09] LABS: HEMATOCRIT 39.8 % (42.0-52.0); HEMOGLOBIN 13.4 gm/dL (14.0-18.0); MCH 32.4 pg (26.0-34.0); MCHC 33.6 g/dL (28.0-37.0); MCV 96.4 fL (80.0-100.0); MPV 10.1 fl. (7.2-11.1); RBC 4.13 mil/uL (4.50-6.00); RDW-CV 15.3 % (10.5-14.5); WBC 8.7 thou/uL (4.0-11.0)
[2021-08-25 06:16] LABS: CALCIUM 8.3 mg/dL (8.5-10.1); CREATININE 1.1 mg/dL (0.6-1.3); MAGNESIUM 2.4 mg/dL (1.8-2.4); POTASSIUM 4.8 mmol/L (3.5-5.1); TOTAL BILIRUBIN 1.1 mg/dL (<0.1-1.0); TOTAL PROTEIN 6.4 g/dL (6.4-8.2)
[2021-08-25 18:16] LABS: PO2 62.4 mmHg (75.0-100.0)
[2021-08-25 18:24] LABS: PCO2 61.2 mmHg (35.0-45.0); pH 7.195 (7.340-7.450)
[2021-08-26] VITALS (58 sets, daily range): BP systolic 47–147; BP diastolic 28–74
[2021-08-26 03:34] LABS: URINE BILIRUBIN NEGATIVE (Negative); URINE BLOOD 3+ (Negative); URINE CLARITY CLOUDY; URINE COLOR YELLOW; URINE GLUCOSE-RANDOM NEGATIVE (Negative); URINE KETONES NEGATIVE (Negative); URINE LEUKOCYTES-REFLEX 1+ (Negative); URINE NITRITE-REFLEX NEGATIVE (Negative); URINE PROTEIN 1+ (Negative); URINE SPECIFIC GRAVITY >= 1.030 (1.005-1.030); URINE UROBILINOGEN 0.2 E.U./dl (0.2-1.0)
[2021-08-26 05:08] LABS: HYALINE CASTS 4-10 Moderate /LPF (None Seen); SQUAMOUS NONE SEEN /LPF (0-3)
[2021-08-26 05:10] LABS: URINE WBC-REFLEX 6-15 Few /HPF (0-5)
[2021-08-26 05:11] LABS: CRYSTALS None Seen /LPF (None Seen); YEAST-REFLEX Present (None Seen)
[2021-08-26 06:22] LABS: ABSOLUTE BASOPHILS 0.1 thou/uL (0.0-0.2); ABSOLUTE LYMPHOCYTES 0.2 thou/uL (0.8-5.3); ABSOLUTE NEUTROPHILS 17.6 thou/uL (1.6-8.1); BASOPHILS 0.8 %; HEMATOCRIT 43.4 % (42.0-52.0); HEMOGLOBIN 14.4 gm/dL (14.0-18.0); LYMPHOCYTES 1.2 %; MCH 32.6 pg (26.0-34.0); MCHC 33.1 g/dL (28.0-37.0); MCV 98.5 fL (80.0-100.0); MONOCYTES 0.3 %; MPV 10.5 fl. (7.2-11.1); NUCLEATED RBCS 0 /100WBC; PLATELET COUNT* 93 thou/uL (150-400); POLYS 97.7 %; RBC 4.41 mil/uL (4.50-6.00); RDW-CV 15.9 % (10.5-14.5)
[2021-08-26 06:27] LABS: HEMATOCRIT 42.7 % (42.0-52.0); HEMOGLOBIN 14.1 gm/dL (14.0-18.0); MCH 32.4 pg (26.0-34.0); MCV 98.1 fL (80.0-100.0); MPV 10.3 fl. (7.2-11.1); RBC 4.35 mil/uL (4.50-6.00); RDW-CV 15.8 % (10.5-14.5); WBC 17.8 thou/uL (4.0-11.0)
[2021-08-26 06:47] LABS: ALBUMIN 1.9 g/dL (3.4-5.0); CALCIUM 7.8 mg/dL (8.5-10.1); MAGNESIUM 2.6 mg/dL (1.8-2.4); POTASSIUM 5.9 mmol/L (3.5-5.1); TOTAL PROTEIN 6.5 g/dL (6.4-8.2)
[2021-08-26 06:49] LABS: PHOSPHORUS* 8.2 mg/dL (2.5-4.9)
[2021-08-26 06:51] LABS: CREATININE 2.4 mg/dL (0.6-1.3)
[2021-08-26 10:38] LABS: BE -10.4 mmol/L (-2 to +3); PO2 63.6 mmHg (75.0-100.0)
[2021-08-26 10:47] LABS: PCO2 67.6 mmHg (35.0-45.0); pH 7.099 (7.340-7.450)
[2021-08-26 14:52] LABS: BE -8.4 mmol/L (-2 to +3); PO2 68.5 mmHg (75.0-100.0)
[2021-08-26 14:59] LABS: PCO2 54.2 mmHg (35.0-45.0); pH 7.191 (7.340-7.450)
[2021-08-26 15:18] LABS: ANION GAP 11 mmol/L (7-16); BUN 64 mg/dL (7-18); CHLORIDE 116 mmol/L (98-107); CO2 15 mmol/L (21-32); CREATININE 1.9 mg/dL (0.6-1.3); GLUCOSE 278 mg/dL (70-99); MAGNESIUM 1.3 mg/dL (1.8-2.4); SODIUM 142 mmol/L (136-145)
[2021-08-26 15:20] LABS: POTASSIUM 3.5 mmol/L (3.5-5.1)
[2021-08-26 15:22] LABS: CALCIUM < 5.0 mg/dL (8.5-10.1)
[2021-08-26 16:17] LABS: MAGNESIUM 2.5 mg/dL (1.8-2.4)
[2021-08-26 16:19] LABS: CALCIUM 7.5 mg/dL (8.5-10.1); CREATININE 3.5 mg/dL (0.6-1.3); POTASSIUM 5.7 mmol/L (3.5-5.1)
[2021-08-26 18:40] LABS: BE -4.6 mmol/L (-2 to +3); PCO2 49.1 mmHg (35.0-45.0)
[2021-08-26 18:43] LABS: pH 7.278 (7.340-7.450)
[2021-08-26 20:54] LABS: CALCIUM 7.2 mg/dL (8.5-10.1); CREATININE 3.6 mg/dL (0.6-1.3); MAGNESIUM 2.4 mg/dL (1.8-2.4); POTASSIUM 5.9 mmol/L (3.5-5.1)
[2021-08-27] VITALS (87 sets, daily range): BP systolic 67–140; BP diastolic 41–76
[2021-08-27 06:46] LABS: HEMATOCRIT 32.3 % (42.0-52.0); MCHC 33.5 g/dL (28.0-37.0); MCV 95.4 fL (80.0-100.0); NUCLEATED RBCS 0 /100WBC; RBC 3.39 mil/uL (4.50-6.00); RDW-CV 15.7 % (10.5-14.5); WBC 11.3 thou/uL (4.0-11.0)
[2021-08-27 06:47] LABS: HEMOGLOBIN 10.8 gm/dL (14.0-18.0)
[2021-08-27 06:49] LABS: PLATELET COUNT* 45 thou/uL (150-400)
[2021-08-27 06:54] LABS: ALBUMIN 1.5 g/dL (3.4-5.0); CREATININE 3.1 mg/dL (0.6-1.3); MAGNESIUM 1.9 mg/dL (1.8-2.4); TOTAL BILIRUBIN 0.8 mg/dL (<0.1-1.0); TOTAL PROTEIN 4.3 g/dL (6.4-8.2)
[2021-08-27 06:55] LABS: POTASSIUM 3.9 mmol/L (3.5-5.1)
[2021-08-27 06:57] LABS: CALCIUM 5.8 mg/dL (8.5-10.1)
[2021-08-27 08:11] LABS: BASOPHILS 0.2 %; LYMPHOCYTES 2.8 %; MONOCYTES 0.8 %; POLYS 96.2 %
[2021-08-27 09:16] LABS: ABSOLUTE LYMPHOCYTES 0.3 thou/uL (0.8-5.3); ABSOLUTE MONOCYTES 0.1 thou/uL (0.0-1.2); ABSOLUTE NEUTROPHILS 10.6 thou/uL (1.6-8.1)
[2021-08-27 09:42] LABS: BE 5.4 mmol/L (-2 to +3); PCO2 48.3 mmHg (35.0-45.0); PO2 64.2 mmHg (75.0-100.0); pH 7.421 (7.340-7.450)
--- NOTE | 2021-08-27 10:53 | EKG ---
[place] [address] ELECTROCARDIOGRAM REPORT Name: YOUNG TEJADA Room: [address] ADM IN M.R.#: [id number] Admission: 08/07/21 Attend Phys: Cheryl Wylie, Discharge: Date of : 54 Date of Service: 08/26/21 1437 Report #: [id number] THIS REPORT FOR: //name// [facility] Test Date: 2021-08-26 Test Time: 14:37:19 Pat Name: YOUNG TEJADA Department: Room: [address] Gender: M Cell Changer: KELLY : 1950 Requested By: Cheryl Wylie Order Number: [id number] [place] MD: Schuyler Arellano Measurements Intervals [place] Rate: 101 P: 2 [place]: 183 QRS: -130 QRSD: 214 T: 21 QT: 408 QTc: 529 Interpretive Statements Sinus tachycardia artifact noted Right bundle branch block Compared to ECG 08/16/2021 05:10:09 Sinus rhythm no longer present Electronically Signed On 08-27-2021 10:52:58 MANAGER SOLAR by Schuyler Arellano [email or web address] <ELECTRONICALLY SIGNED> By: Schuyler Arellano MD, FAC 08/27/21 1052 1437 1437 Schuyler Arellano MD, [facility] /EPI
[2021-08-27 16:20] LABS: ABSOLUTE LYMPHOCYTES 0.3 thou/uL (0.8-5.3); ABSOLUTE MONOCYTES 0.1 thou/uL (0.0-1.2); ABSOLUTE NEUTROPHILS 13.8 thou/uL (1.6-8.1); BASOPHILS 0.2 %; HEMOGLOBIN 11.7 gm/dL (14.0-18.0); LYMPHOCYTES 1.9 %; MCH 31.8 pg (26.0-34.0); MCHC 33.5 g/dL (28.0-37.0); MONOCYTES 0.6 %; MPV 10.6 fl. (7.2-11.1); NUCLEATED RBCS 0 /100WBC; PLATELET COUNT* 51 thou/uL (150-400); POLYS 97.3 %; RBC 3.68 mil/uL (4.50-6.00); RDW-CV 15.8 % (10.5-14.5); WBC 14.2 thou/uL (4.0-11.0)
[2021-08-27 16:35] LABS: ALBUMIN 1.9 g/dL (3.4-5.0); CREATININE 3.5 mg/dL (0.6-1.3); POTASSIUM 4.8 mmol/L (3.5-5.1); TOTAL PROTEIN 5.6 g/dL (6.4-8.2)
[2021-08-27 16:37] LABS: CALCIUM 7.9 mg/dL (8.5-10.1)
[2021-08-27 18:27] LABS: PO2 61.6 mmHg (75.0-100.0); pH 7.302 (7.340-7.450)
[2021-08-27 18:29] LABS: PCO2 66.7 mmHg (35.0-45.0)
[2021-08-28] VITALS (34 sets, daily range): BP systolic 71–132; BP diastolic 46–67
[2021-08-28 05:51] LABS: ABSOLUTE LYMPHOCYTES 0.4 thou/uL (0.8-5.3); ABSOLUTE MONOCYTES 0.1 thou/uL (0.0-1.2); ABSOLUTE NEUTROPHILS 10.2 thou/uL (1.6-8.1); BASOPHILS 0.4 %; HEMATOCRIT 29.5 % (42.0-52.0); HEMOGLOBIN 10.1 gm/dL (14.0-18.0); LYMPHOCYTES 3.4 %; MCH 32.7 pg (26.0-34.0); MCHC 34.1 g/dL (28.0-37.0); MCV 95.6 fL (80.0-100.0); MONOCYTES 0.6 %; MPV 10.5 fl. (7.2-11.1); NUCLEATED RBCS 0 /100WBC; POLYS 95.6 %; RBC 3.08 mil/uL (4.50-6.00); RDW-CV 15.6 % (10.5-14.5); WBC 10.6 thou/uL (4.0-11.0)
[2021-08-28 06:01] LABS: PLATELET COUNT* 37 thou/uL (150-400)
[2021-08-28 06:24] LABS: ALBUMIN 2.1 g/dL (3.4-5.0); CALCIUM 7.5 mg/dL (8.5-10.1); CREATININE 3.2 mg/dL (0.6-1.3); MAGNESIUM 2.2 mg/dL (1.8-2.4); PHOSPHORUS* 5.6 mg/dL (2.5-4.9); POTASSIUM 4.7 mmol/L (3.5-5.1); TOTAL BILIRUBIN 1.1 mg/dL (<0.1-1.0); TOTAL PROTEIN 5.4 g/dL (6.4-8.2)
[2021-08-28 09:28] LABS: BE 4.9 mmol/L (-2 to +3); PO2 62.9 mmHg (75.0-100.0); pH 7.379 (7.340-7.450)
[2021-08-28 09:33] LABS: PCO2 54.1 mmHg (35.0-45.0)
[2021-08-28 14:48] LABS: BE 2.6 mmol/L (-2 to +3); PCO2 42.9 mmHg (35.0-45.0); pH 7.423 (7.340-7.450)
[2021-08-28 15:08] LABS: PO2 46.9 mmHg (75.0-100.0)
--- NOTE | 2021-08-29 11:02 | CON ---
[address] [address] CONSULTATION Name: YOUNG TEJADA Room: [address] IN M.R.#: [id number] Admission: 08/07/21 Attend Phys: Cheryl Wylie MD Discharge: 08/28/21 Date of : 54 Report #: [id number] THIS REPORT FOR: cc: Elina Leal Stefany RNP Arakelov, Alexandr V. MD ~ DATE OF CONSULTATION: 08/27/2021 HISTORY OF PRESENT ILLNESS: The patient is a 70-year-old man with medical history significant for hypertension, diabetes and COPD, admitted to the hospital on 08/07 with complaints of shortness of breath, was diagnosed with COVID-[address] Mazariegos consulted for respiratory problems. The patient currently is in intensive care unit, intubated and sedated. I was consulted because of acute kidney injury. His creatinine on admission was normal, but on 08/26, it went up from 1.1 to 2.4 and then later on to 3.5. Creatinine today is 3.1. He has good urine output and his potassium currently is 3.9, it was as high as 5.9 yesterday. The patient also has problems with thrombocytopenia. His platelets down to 45,000. MEDICAL HISTORY: As mentioned earlier. SOCIAL HISTORY: No current tobacco or alcohol abuse. FAMILY HISTORY: No history of renal disease. REVIEW OF SYSTEMS: Unobtainable secondary to him being intubated. PHYSICAL EXAMINATION: Exam performed from the distance due to COVID-19 infection and the physical exam findings were discussed in detail with Dr. Mazariegos. The patient is intubated. LABORATORY DATA: Revealed, more current one, serum sodium 142, potassium 3.9, chloride 106, carbon dioxide 25, BUN 93, creatinine 3.1, calcium is 5.8. ASSESSMENT: 1. COVID-19 infection with respiratory failure. 2. Acute kidney injury. 3. Hyperkalemia. 4. Diabetes mellitus type 2. PLAN: The patient is nonoliguric and his creatinine is improving. Discussed IV fluids with Dr. Mazariegos and ICU nurse. Continue current treatment. Monitor very closely his potassium and renal function. Again, at this point, [place] [address] CONSULTATION Name: YOUNG TEJADA Room: [address] IN [facility].#: [id number] Admission: 08/07/21 Attend Phys: Cheryl Wylie MD Discharge: 08/28/21 Date of : 54 Report #: [id number] require dialysis, but we will have to monitor him very carefully. Avoid nephrotoxins. <ELECTRONICALLY SIGNED> By: Rashard Acosta MD 08/29/21 1102 1050 [id number] catrina Camejo
== END 2021-08-28 17:48 | DRG 208 ==
LOC: M.ERS 17:45 → M.ICU 19:31 → M.TBA-ER 19:31 → M.ORTHSURG 08-08 16:40 → M.ICU 08-14 01:31 → M.ORTHSURG 08-18 14:19 → M.ICU 08-22 20:03
PROVIDERS: Internal Medicine; Internal Medicine Critical Care Medicine; Pediatrics; Physician Assistant; Registered Nurse; Student in an Organized Health Care Education/Training Program; ADMIT Internal Medicine; ATTEND Internal Medicine
PROC: XW033E5 Introduction of Remdesivir Anti-infective into Peripheral Vein, Percutaneous Approach, New Technology Group 5 (ICD-10-PCS; 2021-08-08)
PROC: 5A0935A Assistance with Respiratory Ventilation, Less than 24 Consecutive Hours, High Flow/Velocity Cannula (ICD-10-PCS; principal; 2021-08-09)
PROC: 5A0935A Assistance with Respiratory Ventilation, Less than 24 Consecutive Hours, High Flow/Velocity Cannula (ICD-10-PCS; 2021-08-10)
PROC: 5A09457 Assistance with Respiratory Ventilation, 24-96 Consecutive Hours, Continuous Positive Airway Pressure (ICD-10-PCS; 2021-08-11)
PROC: 5A0935A Assistance with Respiratory Ventilation, Less than 24 Consecutive Hours, High Flow/Velocity Cannula (ICD-10-PCS; 2021-08-11)
PROC: 02HV33Z Insertion of Infusion Device into Superior Vena Cava, Percutaneous Approach (ICD-10-PCS; 2021-08-13)
PROC: 5A0935A Assistance with Respiratory Ventilation, Less than 24 Consecutive Hours, High Flow/Velocity Cannula (ICD-10-PCS; 2021-08-14)
PROC: 5A09357 Assistance with Respiratory Ventilation, Less than 24 Consecutive Hours, Continuous Positive Airway Pressure (ICD-10-PCS; 2021-08-14)
PROC: 5A0935A Assistance with Respiratory Ventilation, Less than 24 Consecutive Hours, High Flow/Velocity Cannula (ICD-10-PCS; 2021-08-15)
PROC: 5A0935A Assistance with Respiratory Ventilation, Less than 24 Consecutive Hours, High Flow/Velocity Cannula (ICD-10-PCS; 2021-08-16)
PROC: 5A09357 Assistance with Respiratory Ventilation, Less than 24 Consecutive Hours, Continuous Positive Airway Pressure (ICD-10-PCS; 2021-08-16)
PROC: 5A0935A Assistance with Respiratory Ventilation, Less than 24 Consecutive Hours, High Flow/Velocity Cannula (ICD-10-PCS; 2021-08-17)
PROC: 5A09357 Assistance with Respiratory Ventilation, Less than 24 Consecutive Hours, Continuous Positive Airway Pressure (ICD-10-PCS; 2021-08-17)
PROC: 5A0935A Assistance with Respiratory Ventilation, Less than 24 Consecutive Hours, High Flow/Velocity Cannula (ICD-10-PCS; 2021-08-18)
PROC: 5A0935A Assistance with Respiratory Ventilation, Less than 24 Consecutive Hours, High Flow/Velocity Cannula (ICD-10-PCS; 2021-08-19)
PROC: 5A09357 Assistance with Respiratory Ventilation, Less than 24 Consecutive Hours, Continuous Positive Airway Pressure (ICD-10-PCS; 2021-08-20)
PROC: 5A0935A Assistance with Respiratory Ventilation, Less than 24 Consecutive Hours, High Flow/Velocity Cannula (ICD-10-PCS; 2021-08-20)
PROC: 5A0935A Assistance with Respiratory Ventilation, Less than 24 Consecutive Hours, High Flow/Velocity Cannula (ICD-10-PCS; 2021-08-21)
PROC: 5A09357 Assistance with Respiratory Ventilation, Less than 24 Consecutive Hours, Continuous Positive Airway Pressure (ICD-10-PCS; 2021-08-22)
PROC: 5A0935A Assistance with Respiratory Ventilation, Less than 24 Consecutive Hours, High Flow/Velocity Cannula (ICD-10-PCS; 2021-08-25)
PROC: 0BH17EZ Insertion of Endotracheal Airway into Trachea, Via Natural or Artificial Opening (ICD-10-PCS; 2021-08-25)
PROC: 5A09357 Assistance with Respiratory Ventilation, Less than 24 Consecutive Hours, Continuous Positive Airway Pressure (ICD-10-PCS; 2021-08-25)
PROC: 0W9930Z Drainage of Right Pleural Cavity with Drainage Device, Percutaneous Approach (ICD-10-PCS; 2021-08-25)
PROC: 5A1945Z Respiratory Ventilation, 24-96 Consecutive Hours (ICD-10-PCS; 2021-08-25)
PROC: 0W9930Z Drainage of Right Pleural Cavity with Drainage Device, Percutaneous Approach (ICD-10-PCS; 2021-08-28)
DX: U07.1 COVID-19 (principal); J12.82 Pneumonia due to coronavirus disease 2019; J80 Acute respiratory distress syndrome; N17.0 Acute kidney failure with tubular necrosis; E87.1 Hypo-osmolality and hyponatremia; E46 Unspecified protein-calorie malnutrition; J93.9 Pneumothorax, unspecified; I10 Essential (primary) hypertension; E87.6 Hypokalemia; E88.09 Other disorders of plasma-protein metabolism, not elsewhere classified; E11.65 Type 2 diabetes mellitus with hyperglycemia; E87.5 Hyperkalemia; I48.0 Paroxysmal atrial fibrillation; I87.8 Other specified disorders of veins; K59.00 Constipation, unspecified; E83.51 Hypocalcemia; D69.6 Thrombocytopenia, unspecified; Z88.0 Allergy status to penicillin; Z83.3 Family history of diabetes mellitus; Z68.20 Body mass index [BMI] 20.0-20.9, adult